=== PATIENT | male | born 1980 | race Caucasian/White ===

== ENCOUNTER 2022-04-09 13:29 | Inpatient (IN) | payer OTHER, MEDICAID ==
[~2022-04-09] VITALS: Ht 185.4 cm; Wt 68.9 kg
[2022-04-09 13:35] VITALS: BP_SYST 143
--- NOTE | 2022-04-09 13:41 | NUR ---
Patient triaged and placed in waiting room. VSS and patient appears in no acute distress at this time. Accompanied by self , awaiting available bed, and MD notified of need for MSE.
--- NOTE | 2022-04-09 14:42 | NUR ---
Note marta in ED - 04/09/22 at 1443 by ROLANDO PT SISTER / POWER OF TEST BAKER CALLED REQUESTING UPDATES. CHARGE NURSE SPOKE WITH HER. CALL BACK NUMBER .
--- NOTE | 2022-04-09 14:43 | NUR ---
PT SISTER ABRAHAM / POWER OF GANG TAILER CALLED REQUESTING UPDATES. CHARGE NURSE SPOKE WITH HER. CALL BACK NUMBER .
--- NOTE | 2022-04-09 14:45 | NUR ---
ER DR. JOVEL EXAMINING PT
[2022-04-09 15:15] LABS: HEMOGLOBIN 8.8 g/dL (14.0-18.0)
[2022-04-09 15:24] LABS: HEMATOCRIT 27.2 % (36-54); MEAN CORPUSCULAR HEMOGLOBIN 25 pg (27-31); MEAN CORPUSCULAR HGB CONC 32 % (32-36); MEAN CORPUSCULAR VOLUME 78 fL (79.0-98.0); PLATELET COUNT (AUTO) 599 K/uL (130-430); RED BLOOD CELL COUNT(AUTO) 3.48 MIL/uL (4.2-6.2); RED CELL DISTRIBUTION WIDTH 16.2 % (9.0-15.0)
[2022-04-09 15:38] LABS: ANION GAP 3 (5-15); CALCIUM 11.4 mg/dL (8.4-11.0); CHLORIDE 97 mmol/L (98-107); CREATININE 0.71 mg/dL (0.55-1.30); GLUCOSE 84 mg/dL (70-99); UREA NITROGEN, BLOOD 10 mg/dL (8-21)
[2022-04-09 15:40] LABS: BAND % (MANUAL) 4 % (0-6); BASOPHILS % (MANUAL) 0 % (0-2); BLASTS, MANUAL % 1 % (0-0); EOSINOPHILS % (MANUAL) 0 % (0-7); LYMPHOCYTES % (MANUAL) 14 % (20-46); METAMYELOCYTES % 4 % (0-0); MONOCYTES % (MANUAL) 4 % (0-11); MYELOCYTES % 2 % (0-0)
[2022-04-09 15:43] LABS: GFR AFRICAN AMERICAN 157 mL/min (>90)
[2022-04-09 15:46] LABS: ALANINE AMINOTRANSFERASE 11 U/L (12-78); ALBUMIN 2.2 g/dL (3.4-4.8); ASPARTATE AMINOTRANSFERASE 20 U/L (10-37); TOTAL BILIRUBIN 0.2 mg/dL (0.0-1.0)
[2022-04-09] MEDS ORDERED: PIPERACILLIN/TAZO 3.375 GM in D5W 50 ML IV ONE (16:15)
--- NOTE | 2022-04-09 16:30 | NUR ---
Patient to ER bed H2 to gown for evaluation. Side rails up.
--- NOTE | 2022-04-09 16:40 | NUR ---
PT VELIA FROM [facility] FOR EVAL OF WOUNDS TO SACRAL AREA THAT HAVE NOT BEEN HEALING. PT HAS THREE WOUNDS COVERED WITH DRESSINGS. PT STATES HE HAS BEEN PARAPLEGIC SINCE SEPTEMBER OF THIS YEAR WHILE HAVING TUMOR SPREAD TO SPINE. PT HAS HX OF NON-HODKINS LYMPHOMA AND HIV. PT STATES HE IS NOT CURRENTLY ON CHEMO OR RADIATION. PT IS PLANNING ON HAVING HIS SISTER DRIVE DOWN TO B OPERATOR HIM TO LIVE NEAR HER IN [facility]. PT IS AAOX4, VSS ON ARRIVAL
[2022-04-09] MEDS ORDERED: PIPERACILLIN/TAZOBACTAM 3.375 GM/VIAL (ZOSYN) IV ONE ×2 (17:26)
[2022-04-09] MEDS ORDERED: VANCOMYCIN HCL 1,000 MG in NS 250 ML IV ONE (17:45)
[2022-04-09] MEDS ORDERED: ACET325T PO (18:07)
[2022-04-09] MEDS ORDERED: CALC667T6 PO (18:07)
[2022-04-09] MEDS ORDERED: BICT1TAB PO (18:07)
[2022-04-09] MEDS ORDERED: NUT.237L67 PO (18:07)
[2022-04-09] MEDS ORDERED: ALBMDI INH (18:07)
[2022-04-09] MEDS ORDERED: ESCI20TA PO (18:07)
[2022-04-09] MEDS ORDERED: FOLI0.8T42 PO (18:07)
[2022-04-09] MEDS ORDERED: OSCD500 PO (18:07)
[2022-04-09] MEDS ORDERED: HYDR-3917 PO (18:07)
[2022-04-09] MEDS ORDERED: LIDOINT TP (18:07)
[2022-04-09] MEDS ORDERED: ATRMDI INH (18:07)
[2022-04-09] MEDS ORDERED: DIF100 PO (18:07)
[2022-04-09] MEDS ORDERED: DULO60CA42 PO (18:07)
[2022-04-09] MEDS ORDERED: ARGI1POW13 PO (18:07)
[2022-04-09] MEDS ORDERED: CEPH250C PO (18:07)
[2022-04-09] MEDS ORDERED: ASCO500T20 PO (18:07)
[2022-04-09] MEDS ORDERED: ACYC400T19 PO (18:07)
[2022-04-09] MEDS ORDERED: LOPE2CAP PO (18:07)
[2022-04-09] MEDS ORDERED: MELA5TAB12 PO (18:07)
[2022-04-09] MEDS ORDERED: PRO40 PO (18:07)
--- NOTE | 2022-04-09 18:08 | NUR ---
Medication reconciliation completed with information provided by [facility]. Any prior medication reconciliation on file was reviewed and corrected.
[2022-04-09] MEDS ORDERED: VANCOMYCIN HCL 1000 MG/VIAL IV ONE (18:13)
[2022-04-09] MEDS ORDERED: NACL 0.9% 2,000 ML IV ONE (18:30)
[2022-04-09 19:27] LABS: BILIRUBIN,URINE NEGATIVE (NEGATIVE); BLOOD, URINE NEGATIVE (NEGATIVE); CLARITY/URINE SL CLOUDY (CLEAR); COLOR,URINE YELLOW (YELLOW); GLUCOSE,URINE NEGATIVE (NEGATIVE); KETONES,URINE NEGATIVE (NEGATIVE); LEUKOCYTE ESTERASE ,URINE 3+ (NEGATIVE); NITRITE, URINE NEGATIVE (NEGATIVE); PH,URINE 8.5 (5.0-8.0); PROTEIN URINE TRACE (NEGATIVE); UROBILINOGEN,URINE 0.2 (0.2-1.0)
[2022-04-09 19:41] LABS: BACTERIA,URINE MODERATE /HPF (None Seen); RBC,URINE NONE SEEN /HPF (0-3)
[2022-04-09 19:42] LABS: MUCUS,URINE 1+ /LPF (None Seen)
[2022-04-09] MEDS ORDERED: MORPHINE 4 MG INJ. 4 MG/ML VIAL IVP PRN (19:45)
--- NOTE | 2022-04-09 19:50 | NUR ---
Admit bed requested Patient will be admitted to care of Admitted to MS unit. Diagnosis Osteomyelitis Inpatient (Yes or No) yes Observation (Yes or No) no Orientation concerns or request close to nursing station (Yes or No) no Covid Status pending On vent or bipap no Isolation requirements no Needs a sitter no From Home (Yes or if No enter name of facility) No, [facility] Requires Dialysis (Yes or No) no Med Rec Completed (Yes of No) yes
[2022-04-09] MEDS ORDERED: ACETAMINOPHEN 325 MG TABLET PO PRN (20:15)
--- NOTE | 2022-04-09 20:30 | NUR ---
Patient's sister Ella called to asked about patient. Informed her that patient is admitted and waiting for bed placement. States to call her if patient has a bed
--- NOTE | 2022-04-09 22:24 | NUR ---
Report given to Miladys DELGADO
--- NOTE | 2022-04-09 22:30 | NUR ---
pt came from the ER. Pt is awake, alert and oriented. he is bed bound, room air and has wound stage 4 in their sacrum. Pt has a tyson and DNR.
[2022-04-09 23:10] VITALS: BP_SYST 107
--- NOTE | 2022-04-10 02:00 | NUR ---
Got ordered form Dr. Fraire for 0.45 normal saline running at 80 ml/hr since patient UA is cloudy and his bp in the borderline
--- NOTE | 2022-04-10 04:06 | NUR ---
Consultation Paged Reason for Consultation: Osteomyelitis Was consult called: Y Person who was notified: Meghan Consulting Physician: Dr. Araujo Ordering Physician: Shala Szymanski
[2022-04-10] MEDS: 0.45% NS 500 ML IV SCH ×4 (05:12→20:45)
--- NOTE | 2022-04-10 06:02 | NUR ---
Consultation Paged Reason for Consultation: Osteomyelitis Was consult called: Y Person who was notified: Keon Consulting Physician: Dr. Bal Ordering Physician: Shala Szymanski
[2022-04-10 08:00] VITALS: BP_SYST 128
--- NOTE | 2022-04-10 08:00 | NUR ---
RECEIVED PATIENT FROM PM NURSE, ALERT AND ORIENTED ABLE TO VERBALIZE NEEDS, NO C/O PAIN OR DISCOMFORT AT THIS TIME, IV IN R ARM INTACT, TAO CATH DRAINING DARK CLOUDY URINE, NO OTHER CONCERNS AT THIS TIME, WILL ASSUME ALL CARE OF PATIENT
--- NOTE | 2022-04-10 10:00 | NUR ---
UPDATE PROVIDED TO SISTER REDDY REGARDING PATIENTS CONDITIO
[2022-04-10 11:22] VITALS: BP_SYST 118
[2022-04-10] MEDS: CEFEPIME 2 GM in D5W 100 ML IV SCH ×2 (11:56→22:49)
[2022-04-10] MEDS: metroNIDAZOLE 500 mg/NS 100 ML IV SCH ×2 (13:18→22:52)
[2022-04-10] MEDS ORDERED: ACETAMINOPHEN 325 MG TABLET PO PRN (14:45)
[2022-04-10] MEDS ORDERED: ALBUTEROL MDI INHALATION 8 GM INH INH PRN (14:45)
[2022-04-10] MEDS ORDERED: NALOXONE HCL 0.4 MG/ML AMP (NARCAN) IVP PRN (14:45)
[2022-04-10] MEDS ORDERED: ESCITALOPRAM OXALATE 10 MG TABLET PO SCH (14:45)
[2022-04-10] MEDS ORDERED: LOPERAMIDE HCL 2 MG CAPSULE PO PRN (14:45)
[2022-04-10] MEDS ORDERED: IPRATROPIUM BROMIDE 17 mCg/ACTUATION, 12.9 GM AER.W.ADAP INH PRN (14:45)
[2022-04-10] MEDS ORDERED: NUT TX IMPAIRED RENAL FXN SOY PO SCH (14:45)
[2022-04-10 15:24] VITALS: BP_SYST 124
[2022-04-10] MEDS ORDERED: CITALOPRAM HYDROBROMIDE 20 MG TABLET PO ONE (15:30)
[2022-04-10] MEDS ORDERED: DULoxetine HCL 30 MG CAPSULE.DR (CYMBALTA) PO ONE (15:30)
[2022-04-10] MEDS: HYDROcodone/ACETAMIN 5-325 MG TAB (NORCO/ VICODIN) PO PRN (15:58)
--- NOTE | 2022-04-10 17:00 | NUR ---
PATIENT HAS ORDER FOR ROUTINE BIKTARVY, MEDICATION NOT AVAILABLE FROM IN HOUSE PHARMACY, SPOKE TO RN AT [facility] AND PATIENT DOES NOT HAVE ANY AT FACILITY EITHER, Tomasa OSWALD MADE AWARE, REHEATER MADE AWARE AND WILL FOLLOW UP WITH CASE MANAGEMENT TO FIND AN ALTERNATIVE TO OBTAIN MEDICATION FOR PATIENT
[2022-04-10] MEDS: CALCIUM ACETATE 667 MG CAP PO SCH (17:47)
[2022-04-10] MEDS: IPRATROPIUM BROM 0.5 MG/2.5 ML VIAL.NEB (ATROVENT) INH SCH (20:03)
[2022-04-10] MEDS ORDERED: LIDOCAINE TOPICAL OINT 5%, 35 GM TP SCH (21:00)
[2022-04-10] MEDS ORDERED: NON-FORMULARY MEDICATION (Melatonin 1 TAB) PO SCH (21:00)
[2022-04-10] MEDS ORDERED: NON-FORMULARY MEDICATION (Arginine/Ascorbate Sod/Vite AC (Arginaid Powder) 1 EACH) PO SCH (21:00)
[2022-04-10] MEDS ORDERED: CALCIUM ACETATE PO SCH (22:00)
[2022-04-10 22:09] VITALS: BP_SYST 96
[2022-04-10] MEDS: ASCORBIC ACID 500 MG TABLET PO SCH (22:49)
[2022-04-10] MEDS: FLUCONAZOLE 100 MG TABLET (DIFLUCAN) PO SCH (22:50)
[2022-04-10] MEDS: ACYCLOVIR 400 MG TABLET PO SCH (22:50)
[2022-04-10] MEDS: ACETAMINOPHEN 325 MG TABLET PO PRN (22:52)
[2022-04-10] MEDS: CALCIUM CARBONATE/VITAMIN D3 1 TAB TABLET PO SCH (22:56)
[2022-04-10] MEDS: MELATONIN 5 MG TABLET PO SCH (22:56)
[2022-04-11] VITALS (10 sets, daily range): BP systolic 87–108
[2022-04-11] MEDS: 0.45% NS 500 ML IV SCH ×4 (03:00→23:25)
[2022-04-11] MEDS: metroNIDAZOLE 500 mg/NS 100 ML IV SCH ×3 (05:37→23:21)
[2022-04-11] MEDS: IPRATROPIUM BROM 0.5 MG/2.5 ML VIAL.NEB (ATROVENT) INH SCH ×4 (07:18→19:00)
[2022-04-11] MEDS: CALCIUM ACETATE 667 MG CAP PO SCH ×3 (08:00→18:00)
--- NOTE | 2022-04-11 08:00 | NUR ---
Initial Notes Patient is AOx4. Nonambulatory. Patient shows no ss of distress. Denies pain. Denies SOB. Breathing is even and nonlabored, on room air. Vital signs obtained, as documented. IVF running. IV patent. Patient remains NPO. Meds okay with small sips of water. F/C draining by gravity. Bed is locked, alarm on, and at lowest position. Call light within reach.
[2022-04-11 08:32] LABS: INR 1.1 (0.80-1.20); PROTHROMBIN TIME 11.6 SECS (9.5-12.5)
[2022-04-11] MEDS: CALCIUM CARBONATE/VITAMIN D3 1 TAB TABLET PO SCH ×2 (10:31→23:19)
[2022-04-11] MEDS: CITALOPRAM HYDROBROMIDE 20 MG TABLET PO SCH (10:32)
[2022-04-11] MEDS: NEPHROVITE, (FOLIC ACID/VITAMIN B COMP W-C 1 TAB) PO SCH (10:32)
[2022-04-11] MEDS: PANTOPRAZOLE SODIUM 40 MG TAB PO SCH (10:32)
[2022-04-11] MEDS: DULoxetine HCL 30 MG CAPSULE.DR (CYMBALTA) PO SCH (10:32)
[2022-04-11] MEDS: ACYCLOVIR 400 MG TABLET PO SCH ×2 (10:33→23:18)
[2022-04-11] MEDS: ASCORBIC ACID 500 MG TABLET PO SCH ×2 (10:33→23:19)
--- NOTE | 2022-04-11 12:00 | NUR ---
Notes Wound care done. Patient tolerated well. No ss of distress noted. Patient denies pain. Safety precautions in place and call light within reach.
[2022-04-11] MEDS: CEFEPIME 2 GM in D5W 100 ML IV SCH ×2 (12:06→23:20)
--- NOTE | 2022-04-11 12:06 | NUR ---
Scheduled IV abx given per order. Patient stable at this time.
--- NOTE | 2022-04-11 14:27 | NUR ---
Scheduled IV abx given per order. Patient stable at this time.
--- NOTE | 2022-04-11 16:00 | NUR ---
Notes Spoke Jayy RN Tunnel Heading Supervisor at [facility] phone # , regarding patient's medication Biktarvy. Jayy stated that the facility has a policy that does not allow them to release the patient's medication. States that he is not able to release meds and that our pharmacy should supply medication. Informed him that our pharmacy does not carry this particular medication and that the patient needs Biktarvy medication and not receiving medication is delaying care. RN underwriting clerks supervisor adamant that he cannot release medication. Called snf pharmacy at , spoke to elana Sheldon. Per pharmacist, no policy exist. Pharmacist agrees that patient requires medications and that it can be released. Per pharmacist, she was to call facility [facility] and inform staff to release medications for patient. Called Ella, sister and POA of patient. Ella states that she is about 7- 8 hours away and will not be here until tomorrow (04/13/22) afternoon, approximately around 3 pm. States patient has a friend Asha, who she gives consent to go get medication from facility this evening. Dangdouglas will be able to get med after 1700.
--- NOTE | 2022-04-11 17:30 | NUR ---
Notes Called [facility], spoke to Jayy RN Contemporary [employer]cer. RN did not receive a call from pharmacist. Informed RN what Pharmacist stated that there is no policy in place regarding not releasing medication. Informed from RN that Asha was already in facility to pecan picker medication. DANNY Hope to call LORRAINE Jaramillo to obtain consent to release medication to [facility]. Called and spoke to Asha at . Asha stated he was at [facility] to pecan picker medication Biktarvy and would bring medication to [facility]. Called and spoke to Ella, stated she spoke to RN at [facility], gave consent for Asha to recieve and bring medication to [facility].
--- NOTE | 2022-04-11 18:00 | NUR ---
Notes Patient off unit, went to OR.
[2022-04-11] MEDS ORDERED: METOCLOPRAMIDE HCL 10 MG/2 ML VIAL IVP PRN (18:45)
[2022-04-11] MEDS ORDERED: ONDANSETRON HCL 4 MG/2 ML VIAL IVP PRN (18:45)
[2022-04-11] MEDS ORDERED: fentaNYL CITRATE/PF 100 MCG/2 ML AMP IVP PRN ×2 (18:45)
[2022-04-11] MEDS ORDERED: NS IRRIG SOLN 1000 ML IR ONE (18:55)
[2022-04-11] MEDS ORDERED: MIDAZOLAM HCL 5 MG/5 ML VIAL IVP ONE (18:55)
[2022-04-11] MEDS ORDERED: PROPOFOL 200MG/ 20ML VIAL (DIPRIVAN) IV ONE (18:55)
[2022-04-11] MEDS ORDERED: NS 1000 ML IV.SOLN IV ONE (18:55)
--- NOTE | 2022-04-11 19:00 | NUR ---
Updated received from TIGIST Jenkins. Patient is still in OR.
--- NOTE | 2022-04-11 20:22 | NUR ---
Closing notes Patient remains in OR. Asha, patient's friend, brought Bikarvy medication. Friend Asha waiting in waiting room, can call cell phone # [phone]. Sister Ella would like a call once patient is back in room at phone # [phone]. Per LORRAINE Jaramillo, requests NO update, regarding patient's status, to be given to anyone at [facility]. Would also like to talk to manager of case regarding moving patient once discharged to a facility closer to her. Report given to DANNY Wilder.
--- NOTE | 2022-04-11 20:50 | NUR ---
Received patient from OR, s/p D&I on the posterior ulcers with wound vac. Patient's alert and oriented x4, no s/s of distress. Wound vac functioning well with small amount draining of serous sanguinous. Wound vac dressing on the sacrum and buttocks clean with no leakage or drainage noted. Report received from the OR nurse. Patient denies any pain or discomfort.
[2022-04-11] MEDS: FLUCONAZOLE 100 MG TABLET (DIFLUCAN) PO SCH (23:18)
[2022-04-11] MEDS: MELATONIN 5 MG TABLET PO SCH (23:19)
[2022-04-12] VITALS (7 sets, daily range): BP systolic 88–113
[2022-04-12] MEDS: 0.45% NS 500 ML IV SCH (04:00)
[2022-04-12] MEDS: metroNIDAZOLE 500 mg/NS 100 ML IV SCH ×3 (06:35→23:00)
[2022-04-12] MEDS: IPRATROPIUM BROM 0.5 MG/2.5 ML VIAL.NEB (ATROVENT) INH SCH ×4 (07:18→19:00)
--- NOTE | 2022-04-12 08:00 | NUR ---
OPENING NOTE Patient resting in bed with eyes closed, no sign of distress or pain. Granica catheter in place draining to gravity. Wound vac is patent and draining brown discharge. IV is patent and running prescribed fluids. Patients breathing is nonlabored and even. All needs met at this time and safety checks made.
[2022-04-12 08:04] LABS: BASOPHILS # (AUTO) 0.2 K/uL (0.0-0.2); BASOPHILS % (AUTO) 0.2 % (0.0-2.0); EOSINOPHILS # (AUTO) 0.2 K/uL (0.0-0.4); EOSINOPHILS % (AUTO) 0.3 % (0.0-4.0); LYMPHOCYTES # (AUTO) 7.6 K/uL (1.0-5.5); LYMPHOCYTES % (AUTO) 11.6 % (20.5-51.5); MEAN CORPUSCULAR HEMOGLOBIN 25 pg (27-31); MEAN CORPUSCULAR HGB CONC 32 % (32-36); MEAN CORPUSCULAR VOLUME 77 fL (79.0-98.0); MONOCYTES # (AUTO) 4.8 K/uL (0.0-1.0); MONOCYTES % (AUTO) 7.4 % (1.7-9.3); NEUTROPHILS # (AUTO) 52.4 K/uL (1.8-7.7); NEUTROPHILS % (AUTO) 80.5 % (40.0-70.0); PLATELET COUNT (AUTO) 487 K/uL (130-430); RED BLOOD CELL COUNT(AUTO) 3.24 MIL/uL (4.2-6.2); RED CELL DISTRIBUTION WIDTH 15.8 % (9.0-15.0)
[2022-04-12 08:25] LABS: WHITE BLOOD COUNT (AUTO) 65.2 K/uL (4.8-10.8)
[2022-04-12 08:53] LABS: ALBUMIN 1.9 g/dL (3.4-4.8); CREATININE 0.82 mg/dL (0.55-1.30); TOTAL BILIRUBIN 0.3 mg/dL (0.0-1.0)
[2022-04-12] MEDS: CALCIUM CARBONATE/VITAMIN D3 1 TAB TABLET PO SCH ×2 (09:09→22:59)
[2022-04-12] MEDS: ACYCLOVIR 400 MG TABLET PO SCH ×2 (09:09→22:59)
[2022-04-12] MEDS: DULoxetine HCL 30 MG CAPSULE.DR (CYMBALTA) PO SCH (09:09)
[2022-04-12] MEDS: ASCORBIC ACID 500 MG TABLET PO SCH ×2 (09:10→22:58)
[2022-04-12] MEDS: CALCIUM ACETATE 667 MG CAP PO SCH ×3 (09:10→17:13)
[2022-04-12] MEDS: NEPHROVITE, (FOLIC ACID/VITAMIN B COMP W-C 1 TAB) PO SCH (09:10)
[2022-04-12] MEDS: PANTOPRAZOLE SODIUM 40 MG TAB PO SCH (09:11)
[2022-04-12] MEDS: CITALOPRAM HYDROBROMIDE 20 MG TABLET PO SCH (09:11)
[2022-04-12 09:20] LABS: CALCIUM 12.5 mg/dL (8.4-11.0)
--- NOTE | 2022-04-12 09:41 | NUR ---
JESUS TRUONG CALLED, DR JONES, RE; CRITICAL WBC LEVEL. SPOKE TO DEVONTE.
--- NOTE | 2022-04-12 09:58 | NUR ---
CRITICAL LAB: RUSS from Laboratory called with critical lab value WBC 65.2. Medical record number and patient name verified. Read back of values done. DR HASKINS notified of value. NEW orders given at this time.
--- NOTE | 2022-04-12 11:28 | NUR ---
CRITICAL LAB: Dunia from Laboratory called with critical lab value calcium 12.5. Medical record number and patient name verified. Read back of values done. Dr Rausch notified of value. New orders given at this time.
[2022-04-12] MEDS: METHYLPREDNISOLONE SOD SUCC 40 MG/ML VIAL IVP ONE ×2 (11:52→12:15)
[2022-04-12] MEDS: FLUCONAZOLE 200 mg/ NS 100 ML IV SCH (11:54)
[2022-04-12] MEDS: NACL 0.9% 1,000 ML IV SCH ×2 (12:09→23:07)
[2022-04-12] MEDS ORDERED: METHYLPREDNISOLONE SOD SUCC 40 MG/ML VIAL IVP ONE (12:15)
--- NOTE | 2022-04-12 14:30 | NUR ---
FAMILY SPEAKING WITH MD ON PHONE Sister Ella spoke with Dr Rausch on the phone and updated on the plan of care. Family is requesting to take the patient home to [facility] for treatment at a SNF. Family is aware that patient is not able to be discharged for transfer at this time, verbalized understanding.
[2022-04-12] MEDS: PIPERACILLIN/TAZO 4.5GM/DEX-IS 100 ML IV SCH ×2 (14:41→22:59)
--- NOTE | 2022-04-12 15:18 | NUR ---
ROUNDS Patient's blood sugar running low, rechecked at bedside (73), patient given juice and provided education. All needs met at this time and safety checks made.
--- NOTE | 2022-04-12 18:58 | NUR ---
CLOSING NOTES: Patient is resting in bed. No ss of distress.Patient denies pain. Breathing is even and unlabored. All needs met and safety checks made. Call light is within reach and bed in lowest position.
[2022-04-12] MEDS: MELATONIN 5 MG TABLET PO SCH (22:58)
[2022-04-13 00:51] VITALS: BP_SYST 117
[2022-04-13] MEDS: NACL 0.9% 1,000 ML IV SCH ×2 (03:30→16:06)
[2022-04-13] MEDS: metroNIDAZOLE 500 mg/NS 100 ML IV SCH ×3 (06:59→23:07)
[2022-04-13] MEDS: PIPERACILLIN/TAZO 4.5GM/DEX-IS 100 ML IV SCH ×2 (07:00→16:09)
[2022-04-13] MEDS: IPRATROPIUM BROM 0.5 MG/2.5 ML VIAL.NEB (ATROVENT) INH SCH ×4 (07:53→19:40)
[2022-04-13] MEDS ORDERED: METHYLPREDNISOLONE SOD SUCC 40 MG/ML VIAL IVP SCH (09:00)
[2022-04-13 09:27] LABS: HEMATOCRIT 26.6 % (36-54); HEMOGLOBIN 8.4 g/dL (14.0-18.0); MEAN CORPUSCULAR HEMOGLOBIN 25 pg (27-31); MEAN CORPUSCULAR HGB CONC 32 % (32-36); MEAN CORPUSCULAR VOLUME 77 fL (79.0-98.0); PLATELET COUNT (AUTO) 382 K/uL (130-430); RED BLOOD CELL COUNT(AUTO) 3.45 MIL/uL (4.2-6.2); RED CELL DISTRIBUTION WIDTH 16.5 % (9.0-15.0)
[2022-04-13 09:43] LABS: CREATININE 0.77 mg/dL (0.55-1.30)
[2022-04-13 09:59] LABS: ALBUMIN 1.9 g/dL (3.4-4.8); TOTAL BILIRUBIN 0.4 mg/dL (0.0-1.0)
[2022-04-13 10:04] LABS: CALCIUM 13.6 mg/dL (8.4-11.0)
[2022-04-13] MEDS: CITALOPRAM HYDROBROMIDE 20 MG TABLET PO SCH (10:42)
[2022-04-13] MEDS: NEPHROVITE, (FOLIC ACID/VITAMIN B COMP W-C 1 TAB) PO SCH (10:42)
[2022-04-13] MEDS: PANTOPRAZOLE SODIUM 40 MG TAB PO SCH (10:42)
[2022-04-13] MEDS: DULoxetine HCL 30 MG CAPSULE.DR (CYMBALTA) PO SCH (10:43)
[2022-04-13] MEDS: ACYCLOVIR 400 MG TABLET PO SCH ×2 (10:43→21:39)
[2022-04-13 11:21] VITALS: BP_SYST 104
[2022-04-13] MEDS ORDERED: CLARITHROMYCIN 500 MG TABLET PO ONE (13:30)
[2022-04-13 13:37] LABS: ATYPICAL LYMPHOCYTES % 0 % (0-0); BAND % (MANUAL) 18 % (0-6); BASOPHILS % (MANUAL) 0 % (0-2); EOSINOPHILS % (MANUAL) 0 % (0-7); LYMPHOCYTES % (MANUAL) 3 % (20-46); MONOCYTES % (MANUAL) 5 % (0-11)
[2022-04-13 13:38] LABS: BLASTS, MANUAL % 7 % (0-0); METAMYELOCYTES % 15 % (0-0); MYELOCYTES % 10 % (0-0); PROMYELOCYTES % 10 % (0-0)
[2022-04-13] MEDS ORDERED: PAMIDRONATE DISODIUM 30 MG in NS 500 ML IV ONE (14:15)
[2022-04-13 15:24] VITALS: BP_SYST 114
[2022-04-13 16:02] VITALS: BP_SYST 140
[2022-04-13] MEDS: FLUCONAZOLE 200 mg/ NS 100 ML IV SCH (16:06)
--- NOTE | 2022-04-13 18:58 | NUR ---
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 Patient had stool that was taken to the laboratory for C-diff analysis but stool was formed so laboratory couldn't complete the test. Sister and Brother in law were visiting throughout the day. Restarted IV twice for meds to be given. Spoke to various individuals about getting patient ready for discharge tomorrow. Patient generally weak, but is responsive. Dietary consult completed as patient's appetite is very poor. Otherwise no sign or symptom of acute distress at this time.
[2022-04-13] MEDS ORDERED: ASPIRIN 81 MG TAB.CHEW ONE (19:46)
[2022-04-13 20:00] VITALS: BP_SYST 106
[2022-04-13] MEDS: MELATONIN 5 MG TABLET PO SCH (21:39)
[2022-04-13] MEDS: HYDROcodone/ACETAMIN 5-325 MG TAB (NORCO/ VICODIN) PO PRN (21:40)
[2022-04-14] MEDS: PIPERACILLIN/TAZO 4.5GM/DEX-IS 100 ML IV SCH ×3 (00:08→15:58)
[2022-04-14 00:12] VITALS: BP_SYST 108
[2022-04-14] MEDS: NACL 0.9% 1,000 ML IV SCH ×3 (01:16→11:30)
[2022-04-14] MEDS: metroNIDAZOLE 500 mg/NS 100 ML IV SCH ×3 (05:43→22:22)
[2022-04-14] MEDS: IPRATROPIUM BROM 0.5 MG/2.5 ML VIAL.NEB (ATROVENT) INH SCH ×4 (07:05→19:35)
[2022-04-14 07:42] LABS: BASOPHILS # (AUTO) 0.3 K/uL (0.0-0.2); BASOPHILS % (AUTO) 0.2 % (0.0-2.0); EOSINOPHILS # (AUTO) 0.8 K/uL (0.0-0.4); EOSINOPHILS % (AUTO) 0.8 % (0.0-4.0); HEMATOCRIT 24.1 % (36-54); HEMOGLOBIN 7.8 g/dL (14.0-18.0); LYMPHOCYTES # (AUTO) 8.7 K/uL (1.0-5.5); LYMPHOCYTES % (AUTO) 8.4 % (20.5-51.5); MEAN CORPUSCULAR HEMOGLOBIN 25 pg (27-31); MEAN CORPUSCULAR HGB CONC 32 % (32-36); MEAN CORPUSCULAR VOLUME 76 fL (79.0-98.0); MONOCYTES # (AUTO) 21.9 K/uL (0.0-1.0); MONOCYTES % (AUTO) 21.1 % (1.7-9.3); NEUTROPHILS # (AUTO) 72.1 K/uL (1.8-7.7); PLATELET COUNT (AUTO) 289 K/uL (130-430); RED BLOOD CELL COUNT(AUTO) 3.17 MIL/uL (4.2-6.2); RED CELL DISTRIBUTION WIDTH 16.4 % (9.0-15.0)
[2022-04-14 07:58] LABS: CREATININE 0.75 mg/dL (0.55-1.30)
[2022-04-14] MEDS ORDERED: ASPIRIN 81 MG TAB.CHEW ONE (08:27)
[2022-04-14 08:50] LABS: CALCIUM 12.8 mg/dL (8.4-11.0)
[2022-04-14] MEDS: PANTOPRAZOLE SODIUM 40 MG TAB PO SCH (09:16)
[2022-04-14] MEDS: DULoxetine HCL 30 MG CAPSULE.DR (CYMBALTA) PO SCH (09:17)
[2022-04-14] MEDS: ACYCLOVIR 400 MG TABLET PO SCH ×2 (09:18→21:20)
[2022-04-14] MEDS: CITALOPRAM HYDROBROMIDE 20 MG TABLET PO SCH (09:19)
[2022-04-14] MEDS: CLARITHROMYCIN 500 MG TABLET PO SCH (09:21)
[2022-04-14] MEDS: NEPHROVITE, (FOLIC ACID/VITAMIN B COMP W-C 1 TAB) PO SCH (09:22)
[2022-04-14 11:21] VITALS: BP_SYST 107
[2022-04-14 11:26] LABS: PTH, INTACT 2 pg/mL (15-65)
--- NOTE | 2022-04-14 11:45 | NUR ---
Nutrition F/U Admitting Diagnosis Osteomyelitis Reviewed Pertinent Medical/Surgical Hx Medical Record Family members Medical History Comment: Per EMR reivew, PMH of non-Hodgkin lymphoma s/p chemotherapy, paraplegia, anemia, BPH, chronic tyson cathether, CKD, HIV, Burkitt lymphoma. Pt admitted for infected sacral wound, fever. Dx of pelvic bone osteomyelitis, UTI. Per MD notes, plans for irrigation and excisional debridement. 04/10:Consultation: Ischemic gluteal pressure ulcers, necrotic skin, chills ,and unstageable sacral pressure ulcer. Recommend irrigation and excisional debridement of gluteal pressure ulcers and sacral pressure ulcer.He may benefit from negative pressure wound therapy. After debridement, we will try to place the wound-VAC. Subjective Information Nutrition Consult received 04/13/22@ 1404 for pt not eating, HIV+ wasting RD rounded to pt room and pt was sleeping. RD s/w family members about pt condition. They attested to him not eating well at all; he is too weak. Sister said he barely ate yesterday. She said they asked for ONS and never received any, even though it is on his diet order. RD brought back a few Nepros for him. Per sister, pt has been experiencing nausea and chewing difficulties (mostly due to the dry chicken that is served). Sister said [place], [place]. RD suggested considering a GT to help him begin to meet his nutritional needs; and let them know, he could still eat but it would help give him more nutrition to get stronger. She said she would consider that and bring it up to the place they are transferring him to. Current Diet Order/Nutrition Support Renal standard, Nepro TID, Sherwin BID x 2 days Patient/Significant Other Able To Verbalize Education Provided Not Indicated NEW Pertinent Medications Acyclovir, IV Fluids, Piper/Tazo, Zinc, protonix, Nephrovite, NEW Pertinent Labs WBC 102* H, Na 130 L, K 2.8*L, BG 59 L, BUN/CRE WNL, Ca 12.8 H Height (Feet) 6 feet Height (Inches) 1.00 inches Weight fluctuating since admit 04/09 152 pounds/ 68.946 kg Body Mass Index 20.05 kg/m2 Usual Weight 172 lbs %UBW 88 %IBW 83 NEW [place]/Adjusted Body Weight 184#/83.6kg IBW/ ABW (para) 174#/ 79 kg Recent Weight Change Yes - Unintentional wt loss 20#/12% wt change w/in a year Weight Status Underweight Gastrointestinal Symptoms Nausea Last BM Apr 14, 2022 x 1 Food Allergies No Skin Integrity Comment: Gael Score: 12, posterior coccyx Stage IV pressure ulcer per EMR review. Current % PO Poor (avg of 37% x 6 meals since 04/10) NEW Estimated Energy Expenditure (kcals/day) 9767-9397 kcal (30-35kcal/kg ABW d/t wound healing, CA) NEW Estimated Protein Required (g/day) 47-95 g (0.6-1.2g/kg ABW d/t CKD no HD, wound healing, CA) Estimated Fluid Required (l/day) Defer to MD d/t CKD Problem/Etiology/Signs/Symptoms Increased energy needs R/T metabolic demands AEB estimated nutritional needs for wound healing. Expected Outcomes/Goals Monitor appetite and PO intakes w/ goal of meeting >75% of estimated nutritional needs, labs trending WNL, normal GI function, and skin integrity/wt maintenance. Dietitian Recommendations * Renal diet, Nepro TID, Sherwin BID (supplements yield 1440kcal/day, 62g protein/day). * Encourage good PO intakes Follow Up High Risk: F/U in 2-3days GS, MPH, RD
--- NOTE | 2022-04-14 11:47 | NUR ---
Dietitian Recommendations * Renal diet, Nepro TID, Sherwin BID (supplements yield 1440kcal/day, 62g protein/day). * Encourage good PO intakes GS, MPH, RD Please refer to RD F/U for further details
[2022-04-14 11:49] LABS: WHITE BLOOD COUNT (AUTO) 103.8 K/uL (4.8-10.8)
[2022-04-14] MEDS ORDERED: KCL 40 mEq in 100 mL (PREMIX) 100 ML IV ONE (12:30)
[2022-04-14] MEDS: FLUCONAZOLE 200 mg/ NS 100 ML IV SCH (13:13)
[2022-04-14] MEDS ORDERED: PAMIDRONATE DISODIUM 30 MG in NS 500 ML IV ONE (13:30)
[2022-04-14] MEDS: KCL 20 mEq in 100 mL (PREMIX) 100 ML IV SCH ×2 (13:50→16:03)
[2022-04-14 13:59] LABS: NEUTROPHILS % (AUTO) 69.5 % (40.0-70.0)
[2022-04-14 15:29] VITALS: BP_SYST 120
[2022-04-14] MEDS: VANCOMYCIN HCL 1,000 MG in NS 250 ML IV SCH (16:03)
--- NOTE | 2022-04-14 16:04 | NUR ---
Information for transfer to [facility] FAXed to Leyda -warehouse manager at [facility]. [phone]/fax [phone]. Accepting MD will be Dr Allen [phone]
--- NOTE | 2022-04-14 19:30 | NUR ---
OPENING NOTE Pt lying in bed, eyes closed and nonresponsive. Pt had temperature of 101 today, currently 98.3. On cooling measures. 2L nasal cannula. IV sites intact and patent. Garnica catheter intact and draining by gravity. Wound vac to sacrum draining. Fall and safety precautions in place with bed in lowest position, bed alarm on, and call light within reach
[2022-04-14 20:00] VITALS: BP_SYST 111
[2022-04-14] MEDS ORDERED: TIGECYCLINE 100 MG in NS 100 ML IV ONE (21:00)
[2022-04-14] MEDS: MELATONIN 5 MG TABLET PO SCH ×2 (21:20→22:47)
--- NOTE | 2022-04-14 21:30 | NUR ---
PATIENT HAS A TEMP OF 101.1. PATIENT REFUSING TYLENOL BY MOUTH. COOLING MEASURES APPLIED AND DR. LUCAS PAGED TO BE NOTIFIED. Kerline LUCERO RN.
[2022-04-14] MEDS: ACETAMINOPHEN 325 MG TABLET PO PRN ×2 (21:48→22:21)
--- NOTE | 2022-04-14 22:00 | NUR ---
NO RETURN CALL BACK FROM DR. LUCAS TO NOTIFY OF PATIENT TEMP AND UNABLE TO GIVE ORAL TYLENOL. DR. LUCAS PAGED A SECOND TIME. Kerline LUCERO RN.
--- NOTE | 2022-04-14 22:30 | NUR ---
PATIENT'S TEMP NOW 101.7. NEW ICE PACKS APPLIED. NO RETURN CALL FROM DR. LUCAS. JAGUAR CHARGE NURSE NOTIFIED. DR. DOAN PAGED TO BE NOTIFIED. Kerline LUCERO RN.
--- NOTE | 2022-04-14 23:22 | NUR ---
NO RETURN CALL FROM DR. DOAN. DR. DOAN PAGED A SECOND TIME TO BE NOTIFIED OF ELEVATE TEMP AND UNABLE TO GIVE PO TYLENOL. Kerline LUCERO RN.
--- NOTE | 2022-04-15 00:03 | NUR ---
PATIENT TEMP NOW 101.6. COOLING MEASURES APPLIED AGAIN. NO RETURN CALL FROM DR. DOAN. DR. DOAN PAGED FOR THE THIRD TIME AND [facility] CHARGE NURSE NOTIFIED. Kerline LUCERO RN.
[2022-04-15] MEDS: NACL 0.9% 1,000 ML IV SCH ×2 (00:29→09:39)
[2022-04-15] MEDS: VANCOMYCIN HCL 1,000 MG in NS 250 ML IV SCH ×2 (02:26→15:45)
[2022-04-15 02:35] VITALS: BP_SYST 130
--- NOTE | 2022-04-15 02:42 | NUR ---
PATIENT TEMP NOW 102.4 WITH RESPIRATIONS OF 40, BLOOD PRESSURE 130/84 AND HEART RATE OF 128. DR. DOAN CALLED TO BE NOTIFIED. MESSAGE LEFT ON CELL PHONE. NUMERICAL TOOL PROGRAMMER AND CHARGE NURSE MADE AWARE OF PATIENTS CONDITION. COOLING MEASURES APPLIED. PATIENT CONFUSED AND UNABLE TO SWALLOW PILLS AT THIS TIME. WILL CONTINUE TO MONITOR FOR SAFETY. Kerline LUCERO RN.
--- NOTE | 2022-04-15 02:58 | NUR ---
DR. KABA CALLED AND NOTIFIED OF PATIENTS CONDITION, ELEVATED TEMP OF 102.4, RESPIRATIONS OF 40, HEART RATE OF 128 AND BLOOD PRESSURE OF 130/84. ORDERS FOR TYLENOL MO GIVEN. WILL CARRY OUT ORDER AND CONTINUE TO MONITOR FOR SAFETY. Kerline LUCERO RN.
[2022-04-15] MEDS: ACETAMINOPHEN 650 MG SUPP.RECT RC PRN ×2 (03:30→09:41)
[2022-04-15 04:30] VITALS: BP_SYST 118
--- NOTE | 2022-04-15 04:30 | NUR ---
TEMP REDUCED TO 101.5 AFTER TYLENOL 650MG SUPP. COOLING MEASURES APPLIED. WILL CONTINUE TO MONITOR FOR SAFETY. Kerline LUCERO RN.
[2022-04-15] MEDS: metroNIDAZOLE 500 mg/NS 100 ML IV SCH ×3 (06:04→22:24)
--- NOTE | 2022-04-15 07:02 | NUR ---
DR. DOAN RETURNED CALL AND PLACED ORDERS FOR BLOOD CULTURE, COOLING BLANKET, URINE CULTURE, CHANGE IVF TO D5NS @75ML/HR. COVID, FLU SWAB, ACCU CHECK X [address] ORDERS AND ENDORSE TO DAY SHIFT NURSE. Kerline LUCERO RN
[2022-04-15 07:07] LABS: BASOPHILS # (AUTO) 0.3 K/uL (0.0-0.2); BASOPHILS % (AUTO) 0.3 % (0.0-2.0); EOSINOPHILS # (AUTO) 0.3 K/uL (0.0-0.4); EOSINOPHILS % (AUTO) 0.4 % (0.0-4.0); HEMATOCRIT 25.8 % (36-54); HEMOGLOBIN 8.3 g/dL (14.0-18.0); LYMPHOCYTES # (AUTO) 10.7 K/uL (1.0-5.5); LYMPHOCYTES % (AUTO) 13.5 % (20.5-51.5); MEAN CORPUSCULAR HEMOGLOBIN 24 pg (27-31); MEAN CORPUSCULAR HGB CONC 32 % (32-36); MEAN CORPUSCULAR VOLUME 76 fL (79.0-98.0); MONOCYTES % (AUTO) 27.8 % (1.7-9.3); PLATELET COUNT (AUTO) 178 K/uL (130-430); RED BLOOD CELL COUNT(AUTO) 3.42 MIL/uL (4.2-6.2); RED CELL DISTRIBUTION WIDTH 16.5 % (9.0-15.0)
[2022-04-15] MEDS ORDERED: D5NS 1,000 ML IV SCH (07:15)
[2022-04-15 07:29] LABS: ALBUMIN 1.9 g/dL (3.4-4.8); CALCIUM 11.4 mg/dL (8.4-11.0); CREATININE 0.85 mg/dL (0.55-1.30); PHOSPHORUS 0.3 mg/dL (2.7-4.5); TOTAL BILIRUBIN 0.4 mg/dL (0.0-1.0)
[2022-04-15] MEDS: IPRATROPIUM BROM 0.5 MG/2.5 ML VIAL.NEB (ATROVENT) INH SCH ×3 (07:29→19:43)
[2022-04-15] MEDS: PANTOPRAZOLE SODIUM 40 MG TAB PO SCH (09:00)
[2022-04-15] MEDS: DULoxetine HCL 30 MG CAPSULE.DR (CYMBALTA) PO SCH (09:00)
[2022-04-15] MEDS: CITALOPRAM HYDROBROMIDE 20 MG TABLET PO SCH (09:00)
[2022-04-15] MEDS: NEPHROVITE, (FOLIC ACID/VITAMIN B COMP W-C 1 TAB) PO SCH (09:00)
[2022-04-15] MEDS: CLARITHROMYCIN 500 MG TABLET PO SCH (09:00)
[2022-04-15] MEDS: ACYCLOVIR 400 MG TABLET PO SCH (09:40)
[2022-04-15] MEDS: TIGECYCLINE 50 MG in NS 100 ML IV SCH ×2 (09:43→20:44)
[2022-04-15 10:42] LABS: WHITE BLOOD COUNT (AUTO) 79.3 K/uL (4.8-10.8)
[2022-04-15 11:20] VITALS: BP_SYST 101
[2022-04-15] MEDS ORDERED: KCL 20 mEq in D5W 1000 mL 1,000 ML IV SCH ×2 (12:15→12:30)
[2022-04-15] MEDS ORDERED: K PHOS 30 MM in NS 250 ML IV ONE (12:15)
[2022-04-15 12:33] LABS: VIT D,1, 25-DIHYDROXY 13.3 pg/mL (24.8-81.5)
--- NOTE | 2022-04-15 13:23 | NUR ---
Dr Allen at [facility] refused to accept patient for transfer. He and Dr Rausch decided the patient is too unstable for 600 mile trip to [place], [place]. The patient's family is aware of refusal for transfer.
[2022-04-15] MEDS ORDERED: DEXTROSE 50% JECT 50 ML DISP.SYRIN IVP ONE (13:30)
[2022-04-15] MEDS ORDERED: ENOXAPARIN SODIUM 40 MG/0.4 ML SYRINGE SUBCUT ONE (14:15)
[2022-04-15] MEDS ORDERED: MAGNESIUM SULFATE IN WATER 100 ML IV ONE (14:30)
[2022-04-15 15:24] VITALS: BP_SYST 107
[2022-04-15] MEDS: FLUCONAZOLE 200 mg/ NS 100 ML IV SCH (15:35)
[2022-04-15] MEDS: ALBUMIN HUMAN 25% 100 ML IV SCH ×2 (15:36→16:30)
[2022-04-15] MEDS: SODIUM BICARBONATE 8.4% JECT 150 MEQ in D5W 1,000 ML IVP SCH (15:44)
--- NOTE | 2022-04-15 16:08 | NUR ---
CONSULTATION PAGED/CALLED Reason for Consultation: PNEUMONIA Person Who was Notified: RICARDO AT EXCHANGE Consulting Physician: DR. SANDERS Personal Companion Specialty: PULMONARY Ordering Physician: DR. DOAN
--- NOTE | 2022-04-15 17:09 | NUR ---
CONSULT GI COLONOSCOPY NEEDED DR FRAZIER [phone] DR KING WASTE BALER S[facility]
[2022-04-15 20:00] VITALS: BP_SYST 97
[2022-04-16] MEDS: ALBUMIN HUMAN 25% 100 ML IV SCH (00:09)
--- NOTE | 2022-04-16 00:15 | NUR ---
ROUNDS Pt remains unchanged. VSS. Temp 99. Fall and safety precautions in place
[2022-04-16 00:44] VITALS: BP_SYST 94
[2022-04-16] MEDS: VANCOMYCIN HCL 1,000 MG in NS 250 ML IV SCH ×2 (04:18→19:40)
[2022-04-16] MEDS: metroNIDAZOLE 500 mg/NS 100 ML IV SCH ×3 (06:30→21:31)
[2022-04-16] MEDS: SODIUM BICARBONATE 8.4% JECT 150 MEQ in D5W 1,000 ML IVP SCH ×2 (06:31→20:14)
--- NOTE | 2022-04-16 06:57 | NUR ---
CLOSING NOTE Pt lying in bed, eyes closed and nonresponsive. Temp currently 99F. Ice packs applied. On cooling measures. 2L nasal cannula. IV sites intact and patent. Garnica catheter intact and draining by gravity. Wound vac to sacrum draining. All needs met throughout shift. Fall and safety precautions in place with bed in lowest position, bed alarm on, and call light within reach
[2022-04-16] MEDS: IPRATROPIUM BROM 0.5 MG/2.5 ML VIAL.NEB (ATROVENT) INH SCH ×4 (07:21→19:51)
[2022-04-16 07:29] LABS: BASOPHILS # (AUTO) 0.1 K/uL (0.0-0.2); BASOPHILS % (AUTO) 0.2 % (0.0-2.0); EOSINOPHILS # (AUTO) 0.2 K/uL (0.0-0.4); EOSINOPHILS % (AUTO) 0.4 % (0.0-4.0); HEMATOCRIT 22.3 % (36-54); HEMOGLOBIN 7.4 g/dL (14.0-18.0); LYMPHOCYTES # (AUTO) 6.1 K/uL (1.0-5.5); LYMPHOCYTES % (AUTO) 9.5 % (20.5-51.5); MEAN CORPUSCULAR HEMOGLOBIN 25 pg (27-31); MEAN CORPUSCULAR HGB CONC 33 % (32-36); MEAN CORPUSCULAR VOLUME 75 fL (79.0-98.0); MONOCYTES # (AUTO) 22.2 K/uL (0.0-1.0); MONOCYTES % (AUTO) 34.3 % (1.7-9.3); NEUTROPHILS % (AUTO) 55.6 % (40.0-70.0); PLATELET COUNT (AUTO) 109 K/uL (130-430); RED BLOOD CELL COUNT(AUTO) 2.99 MIL/uL (4.2-6.2); RED CELL DISTRIBUTION WIDTH 17.2 % (9.0-15.0)
[2022-04-16 08:19] LABS: CALCIUM 10.6 mg/dL (8.4-11.0); CREATININE 0.6 mg/dL (0.55-1.30)
[2022-04-16 08:38] LABS: WHITE BLOOD COUNT (AUTO) 64.7 K/uL (4.8-10.8)
[2022-04-16] MEDS: DULoxetine HCL 30 MG CAPSULE.DR (CYMBALTA) PO SCH (09:00)
[2022-04-16] MEDS: NEPHROVITE, (FOLIC ACID/VITAMIN B COMP W-C 1 TAB) PO SCH (09:00)
[2022-04-16] MEDS: CITALOPRAM HYDROBROMIDE 20 MG TABLET PO SCH (09:00)
[2022-04-16] MEDS: PANTOPRAZOLE SODIUM 40 MG TAB PO SCH (09:00)
[2022-04-16] MEDS ORDERED: DEXTROSE 50% JECT 50 ML DISP.SYRIN IVP ONE (09:15)
[2022-04-16] MEDS: ENOXAPARIN SODIUM 40 MG/0.4 ML SYRINGE SUBCUT SCH (09:25)
[2022-04-16] MEDS: TIGECYCLINE 50 MG in NS 100 ML IV SCH ×2 (09:26→20:11)
[2022-04-16] MEDS ORDERED: POTASSIUM CHLORIDE 40 MEQ in D5W 250 ML IV ONE (11:00)
[2022-04-16 11:37] VITALS: BP_SYST 97
--- NOTE | 2022-04-16 13:30 | NUR ---
[employer] EMPLOYER RELATIONS REPRESENTATIVE wanted to met with family to check in since they were told pt. is not stable to transport to [facility]. EMPLOYER RELATIONS REPRESENTATIVE met with pts. ' daughter, Ella Kaplan and pts. dad, Toni who are from [facility] near [facility]. EMPLOYER RELATIONS REPRESENTATIVE family stepped outside of the room to discuss hospice as an option. Toni stated the attending does not feel pt. is stable and that pt. is going to pass away at the hospital. Toni also stated they are waiting to speak to Dr. Wilhelm. When EMPLOYER RELATIONS REPRESENTATIVE asked if they had been asked about hospice services, Toni stated hospice is a service for home. EMPLOYER RELATIONS REPRESENTATIVE educated family on the option of hospice and where those services can take place. Toni wanted to speak to Dr. Avendaño to gather more info and daughter stated they had already asked the Rn if they could speak to Dr. Avendaño. EMPLOYER RELATIONS REPRESENTATIVE let them know how they can reach her should they want to explore hospice or need anything else. EMPLOYER RELATIONS REPRESENTATIVE will remain available as needed.
[2022-04-16 16:28] VITALS: BP_SYST 117
--- NOTE | 2022-04-16 17:27 | NUR ---
WOUND EVALUATION: Wound Consult received from Dr. Bal. Thank you, Dr. Bal, for the consult. Patient received in a Elkins Bed with an Isoflex ROMERO mattress, awake, alert, and oriented. Patient is unable to turn in bed. Gael Score is an 11. Past Medical History: Non-Hodgkin Lymphoma, s/p chemotherapy, Anemia, BPH, chronic Indwelling Garnica Catheter, CKD, HIV, Burkitt Lymphoma. Recent Labs: WBC 64.7, RBC 2.99, hemoglobin 7.4, hematocrit 22.3, platelets 109, potassium 2.9, glucose 49, albumin 1.9. Intrinsic factors that delay wound healing: Non-Hodgkin Lymphoma, s/p chemotherapy, Anemia, CKD, HIV, Burkitt Lymphoma, severe Hypoalbuminemia, Hypoglycemia. Extrinsic factors that delay wound healing: Immobility. Microbiology: Blood culture results x2 negative. Urine culture results positive for Proteus Mirabilis. Wound culture results positive for Acinetobacter Baumannii/Haemol (MDRO/ASPHALT TAR AND GRAVEL ROOFER). New blood culture results x2 in progress. Urine culture results negative. New blood culture results x2 in progress. Imaging: CT Abd/Pelvis showed Pelvic Osteomyelitis and Proctitis. Per Dr. Fraire's note, custodial facility records indicated that patient has possible multiple wound infections to pressure sores on his sacrum not responding to aggressive wound care. Wound Assessment: 1. Sacral area: Stage IV pressure ulcer, present on admission. Wound bed has 40% brown slough, 10% yellow slough, 20% black slough, 30% red tissue. No odor, small sanguineous drainage. Undermining present from 9-2 o'clock: 1.3 cm at 9 o'clock; 3.5 cm at 12 o'clock; 1.2 cm at 2 o'clock. Wound measures 9.5 cm x 13.9 cm x 2.0 cm. 2. Left Buttock near Ischium: Stage IV pressure ulcer, present on admission. Wound bed has 40% brown slough, 10% yellow slough, 20% black slough, 30% red tissue. No odor, scant sanguineous drainage. Undermining present from 8-2 o'clock: 3.8 cm at 8 o'clock; 3.6 cm at 9 o'clock; 3.7 cm at 12 o'clock; 1.6 cm at 2 o'clock. Wound measures 7.6 cm x 6.9 cm x 4.3 cm. 3. Right Buttock near Ischium: Stage IV pressure ulcer, present on admission. Wound bed has 50% yellow slough, 10% black slough, 40% dark pink tissue. No odor, scant sanguineous drainage. Undermining present from 9-1 o'clock: 4.0 cm at 9 o'clock; 2.4 cm at 12 o'clock; 1.4 cm at 1 o'clock. Wound measures 3.7 cm x 5.1 cm x 4.7 cm. Recommend: Cleanse wound with normal saline. Apply Sureprep to periwound. Pat black granular foam dressing to size and insert black granufoam dressings cut in a linear fashion into the wound beds cover wound bed with VAC drape. Cut small holes and slough each wound dressing with scissors and and connect wounds together. Run an additional black granufoam dressing cut in a linear fashion to a non-bony portion of the thigh and attach suction attachment. Be sure to place VAC drape over skin prior to securing black granufoam dressings cut in a linear fashion. Run wound VAC at 125 mmHg, high, continuous. Perform site care q. Thursday/Thursday/Thursday and as needed for wound VAC dressing dislodgment. 4. Left Buttock, Inferior to Site 1: Non-intact skin from VAC drape. Site has 100% red tissue. No odor, scant sanguineous drainage. Site measures 1.2 cm x 2.2 cm. Recommend: Cover site with nonadhesive foam dressing, cut to size. Cover site with VAC drape. Perform site care with VAC dressing changes. 5. Left lateral lower extremity distal aspect: Area of dark discoloration and red discoloration. Site measures 3.4 cm x 0.7 cm. Skin is intact. Recommend: Cover site with foam dressing for protection. Change dressing and assess site daily and as needed for dressing soiling or dislodgment. Also recommend: Reposition patient side to side only every 2 hours with one pillow underneath trunk and 1 pillow underneath pelvis bilaterally (initiate turning by using an additional pillow and placing under left side for 2 hours and rotating to right side every 2 hours, repeat every 2 hours). Off-load pressure areas with pillows for pressure re-distribution. Offload, elevate and float bilateral heels with one pillow lengthwise under each extremity at all times (ensure that heels do not touch bed). Perform skin care and monitor skin integrity Q shift. Use moisture barrier cream on buttocks and other moisture susceptible areas QID and as needed for soiling. Place patient on a P500 low air-loss mattress.
[2022-04-16 17:48] LABS: CALCIUM 10.4 mg/dL (8.4-11.0); CREATININE 0.7 mg/dL (0.55-1.30)
[2022-04-16 18:00] VITALS: BP_SYST 115
--- NOTE | 2022-04-16 19:30 | NUR ---
OPENING NOTE Pt lying in bed, eyes are open, minimal tracking. On 2L nasal cannula, tachypneic, saturating 97%. IV sites intact and patent with fluids running at ordered rate. Garnica catheter intact and draining by gravity. Wound vac to sacrum draining. Fall and safety precautions in place with bed in lowest position, bed alarm on, and call light within reach
[2022-04-16] MEDS: FLUCONAZOLE 200 mg/ NS 100 ML IV SCH (19:38)
[2022-04-16 20:00] VITALS: BP_SYST 118
[2022-04-16] MEDS: MELATONIN 5 MG TABLET PO SCH (20:12)
[2022-04-16] MEDS: ACYCLOVIR 400 MG TABLET PO SCH (20:12)
[2022-04-16] MEDS: ACETAMINOPHEN 650 MG SUPP.RECT RC PRN (21:57)
--- NOTE | 2022-04-16 22:30 | NUR ---
PAGEVentura BENAVIDES DR. PAGEVentura BENAVIDES DR.. AT THIS TIME, DUE TO PATIENT'S CONDITION WITH ELEVATED HR (AROUND 128), LOW BLOOD PRESSURE (SBP MID 90'S), INCREASED RESPIRATORY RATE (AROUND 25 RR), AND ELEVATED TEMPERATURE (106 DEGREES F CORE TEMPERATURE) DESPITE SUPPOSITORY TYLENOL ALREADY GIVEN.
--- NOTE | 2022-04-16 22:35 | NUR ---
FEVER Pt had temporal temp of 101.3. Administered RC Tylenol, after an hour temp 100.3. Applied cooling measures with rectal probe. Core Temp read 106 F. Ice packs also applied. Respirations 25, HR 130, O2 98% on 3L. BP 98/48. Paged Dr Fraire
--- NOTE | 2022-04-16 22:55 | NUR ---
PAGED DR. CHONG, A SECOND PAGE TO Corazon GUPTA AT THIS TIME, DUE TO PATIENT'S CONDITION WITH ELEVATED HR (AROUND 128), LOW BLOOD PRESSURE (SBP MID 90'S), INCREASED RESPIRATORY RATE (AROUND 25 RR), AND ELEVATED TEMPERATURE (106 DEGREES F CORE TEMPERATURE) DESPITE SUPPOSITORY TYLENOL ALREADY GIVEN.
--- NOTE | 2022-04-16 23:49 | NUR ---
PAGED DR. CHONG, A THIRD PAGE TO Corazon GUPTA AT THIS TIME, DUE TO PATIENT'S CONDITION WITH ELEVATED HR (AROUND 128), LOW BLOOD PRESSURE (SBP MID 90'S), INCREASED RESPIRATORY RATE (AROUND 25 RR), AND ELEVATED TEMPERATURE (106 DEGREES F CORE TEMPERATURE) DESPITE SUPPOSITORY TYLENOL ALREADY GIVEN.
[2022-04-17] VITALS (8 sets, daily range): BP systolic 74–104
--- NOTE | 2022-04-17 02:30 | NUR ---
SPOKE W/ DR CHONG Pt BP 82/41, 82/44, 79/39. Core temp decreased to 100 F on cooling measures. O2 98% on 3L nasal cannula. HR 100. Ordered stat chest xray. Upgraded from MS to tele
[2022-04-17] MEDS: VANCOMYCIN HCL 1,000 MG in NS 250 ML IV SCH ×2 (03:16→15:53)
--- NOTE | 2022-04-17 03:43 | NUR ---
Paged Dr. Rausch s/w [place]
--- NOTE | 2022-04-17 03:48 | NUR ---
LOW BP Pt's BP is now 72/36, 71/35. No call back from Dr Fraire to inform of CXR results. Paged Dr Rausch
--- NOTE | 2022-04-17 04:00 | NUR ---
SPOKE W/ DR DOAN Informed him of xray results and low BP. Ordered to increase fluids to 100ml/hr and to give albumin 25% 200ml @ 50ml/hr. Also stated that if BP does not respond to the albumin, then to transfer pt to the ICU. Charge nurse notified
[2022-04-17] MEDS: ALBUMIN HUMAN 25% 100 ML IV SCH ×2 (04:12→06:04)
[2022-04-17] MEDS: metroNIDAZOLE 500 mg/NS 100 ML IV SCH ×3 (05:56→22:49)
--- NOTE | 2022-04-17 06:35 | NUR ---
2nd dose of albumin running. BP slowly increasing 85/37. Core temp now normalized to 98.6. Cooling blanket still on. Pt still tachypneic w/ respirations at 25-30, but less use of accessory muscles. O2 100% on 3.5 L nasal cannula. HR 108. Pt is starting to respond to stimuli and mumble words, was able to squeeze RN's hand on command. Wound vac to sacral wound draining. Garnica catheter by gravity. All needs met throughout shift. Will endorse care to day shift RN
[2022-04-17 06:49] LABS: CALCIUM 9.2 mg/dL (8.4-11.0); CREATININE 1.08 mg/dL (0.55-1.30)
[2022-04-17] MEDS: IPRATROPIUM BROM 0.5 MG/2.5 ML VIAL.NEB (ATROVENT) INH SCH ×3 (07:29→16:07)
[2022-04-17 08:13] LABS: HEMATOCRIT 22.8 % (36-54); HEMOGLOBIN 7.3 g/dL (14.0-18.0); MEAN CORPUSCULAR HEMOGLOBIN 24 pg (27-31); MEAN CORPUSCULAR HGB CONC 32 % (32-36); MEAN CORPUSCULAR VOLUME 76 fL (79.0-98.0); PLATELET COUNT (AUTO) 77 K/uL (130-430); RED CELL DISTRIBUTION WIDTH 17.1 % (9.0-15.0)
[2022-04-17] MEDS: PANTOPRAZOLE SODIUM 40 MG TAB PO SCH (08:41)
[2022-04-17] MEDS: NEPHROVITE, (FOLIC ACID/VITAMIN B COMP W-C 1 TAB) PO SCH (08:41)
[2022-04-17] MEDS: DULoxetine HCL 30 MG CAPSULE.DR (CYMBALTA) PO SCH (08:41)
[2022-04-17] MEDS: CITALOPRAM HYDROBROMIDE 20 MG TABLET PO SCH (08:41)
[2022-04-17] MEDS: ACYCLOVIR 400 MG TABLET PO SCH ×2 (08:42→20:56)
--- NOTE | 2022-04-17 10:04 | NUR ---
Psychologist [employer] WARP COILER met with family who was requesting info for [employer]. WARP COILER will meet them in pts. room with resources. WARP COILER gathered resources including cremation and bereavement support services. and met with family in pt. room. WARP COILER told family based on pt.s insurance, he could go to a SNF with hospice care. Father stated they don't want to move pt. and was told by . pt. is going to pass away in the hospital. WARP COILER will remain available as needed.
[2022-04-17] MEDS: TIGECYCLINE 50 MG in NS 100 ML IV SCH ×2 (10:12→20:56)
[2022-04-17] MEDS: ENOXAPARIN SODIUM 40 MG/0.4 ML SYRINGE SUBCUT SCH (10:14)
[2022-04-17] MEDS: SODIUM BICARBONATE 8.4% JECT 150 MEQ in D5W 1,000 ML IVP SCH ×2 (10:15→22:38)
[2022-04-17 10:19] LABS: WHITE BLOOD COUNT (AUTO) 52.2 K/uL (4.8-10.8)
[2022-04-17 13:15] LABS: BAND % (MANUAL) 14 % (0-6); BASOPHILS % (MANUAL) 0 % (0-2); EOSINOPHILS % (MANUAL) 1 % (0-7); LYMPHOCYTES % (MANUAL) 13 % (20-46); METAMYELOCYTES % 7 % (0-0); MONOCYTES % (MANUAL) 3 % (0-11); MYELOCYTES % 8 % (0-0)
[2022-04-17 13:16] LABS: BLASTS, MANUAL % 8 % (0-0)
[2022-04-17] MEDS: FLUCONAZOLE 200 mg/ NS 100 ML IV SCH (15:52)
--- NOTE | 2022-04-17 16:00 | NUR ---
Nutrition F/U Short note 2/2 high pt load. Per EMR review, pt has been NPO x2 days and pending hospice eval. Full Nutrition F/U not indicated at this time. Pt will be downgraded to low nutritional risk priority, due within 7 days. Please send Nutrition Consult if nutrition interventions are warranted.
[2022-04-17 16:51] LABS: ALBUMIN 2.6 g/dL (3.4-4.8); CALCIUM 8.5 mg/dL (8.4-11.0); CREATININE 1.1 mg/dL (0.55-1.30); TOTAL BILIRUBIN 0.5 mg/dL (0.0-1.0)
[2022-04-17 17:50] LABS: INR 2.4 (0.80-1.20)
[2022-04-17] MEDS ORDERED: dilTIAZem HCL IVP 5 MG/ML VIAL IVP ONE (18:15)
--- NOTE | 2022-04-17 19:15 | NUR ---
OPENING NOTES Patient resting in bed. Patient resting in bed visible distress. Head of bed elevated NC3L. IV sites patent. Bed locked and in lowest position. Call light within reach bed alarm on.
--- NOTE | 2022-04-17 20:15 | NUR ---
midline inserted by midline nurse Addendum: 04/18/22 at 0428 by Jaylen Pederson RN Levy DELGADO
[2022-04-17] MEDS ORDERED: ALBUMIN HUMAN 5% 250 ML IV ONE ×2 (20:45)
--- NOTE | 2022-04-17 20:46 | NUR ---
Paged Dr. Bhardwaj patient tachycardic and low blood pressure patient blood pressure 74/41 start of shift notified dr. bhardwaj orders albumin 5% 250cc x 2 standing order to transfer to icu if systolic less than 80 and tachycardic
[2022-04-17] MEDS: MELATONIN 5 MG TABLET PO SCH (20:49)
[2022-04-17] MEDS ORDERED: ALBUMIN HUMAN 25% 100 ML IV ONE (21:15)
[2022-04-17] MEDS ORDERED: NACL 0.9% 1,000 ML IV ONE (21:15)
--- NOTE | 2022-04-17 21:25 | NUR ---
Paged Dr. Fraire again patient heart rate at 140s hospital has no 5% albumin orders transfer ICU 1L NS bolus albumin 25% 100cc 1 bottle
--- NOTE | 2022-04-17 23:15 | NUR ---
Received patient via bed from [facility] after episode of hypotension. SBP 84-87; will contact MD for orders for vasopressors.
--- NOTE | 2022-04-17 23:19 | NUR ---
patient transferred at this time to ICU
[2022-04-18] VITALS (21 sets, daily range): BP systolic 58–138
--- NOTE | 2022-04-18 | NUR ---
Transfer of care to Rusty DELGADO
--- NOTE | 2022-04-18 00:07 | NUR ---
Called patient sister Ella who is POA notified of ICU transfer status
[2022-04-18] MEDS ORDERED: NOREPINEPHRINE BITARTRATE 4 MG in NS 246 ML IV PRN (00:15)
[2022-04-18] MEDS ORDERED: NOREPINEPHRINE 4 MG/4 ML VIAL IV ONE ×2 (00:23→06:35)
[2022-04-18] MEDS: IPRATROPIUM BROM 0.5 MG/2.5 ML VIAL.NEB (ATROVENT) INH SCH ×2 (01:01→07:15)
[2022-04-18] MEDS: levalbuterol HCL 0.63 MG/3 ML VIAL.NEB INH SCH ×2 (01:02→07:15)
--- NOTE | 2022-04-18 01:15 | NUR ---
Received call from Ella (patient's sister) reported patient was started on Levophed and blood pressure on acceptable level at this point. Ella stated will visit patient in am.
--- NOTE | 2022-04-18 01:20 | NUR ---
Order received from Dr Jayce Pittman covering for Dr Fraire to start Levophed as per protocol.
[2022-04-18] MEDS: VANCOMYCIN HCL 1,000 MG in NS 250 ML IV SCH (03:14)
[2022-04-18] MEDS: metroNIDAZOLE 500 mg/NS 100 ML IV SCH (06:30)
[2022-04-18 06:36] LABS: CALCIUM 8.2 mg/dL (8.4-11.0); CREATININE 1.22 mg/dL (0.55-1.30)
--- NOTE | 2022-04-18 07:30 | NUR ---
RECEIVED PATIENT FROM NIGHT RN GIANFRANCO. PT. ON 100% NRM, MOANING AND GROANING ON TURNING, HARD TO DISCERN FEW SPOKEN WORDS. LEVOPHED GTT AT 0.13 MCG/KG/MINUTE, BICARBONATE GTT IN D5% WATER AT 75 MLS/HR. NPO, NO NGT. WOUND VAC DRAIN ON SACRUM, SEROSAGUINOUS HALFUL DRAINAGE. MODIFIED CODE, NO INTUBATION, NO COMPRESSION, OK WITH BiPAP, OK WITH ACLS DRUGS. TAO CATHETER. ON COOLING BLANKET. TEMP. 102.1F RECTAL.
[2022-04-18 07:51] LABS: MEAN CORPUSCULAR HEMOGLOBIN 25 pg (27-31); MEAN CORPUSCULAR HGB CONC 33 % (32-36); MEAN CORPUSCULAR VOLUME 74 fL (79.0-98.0); PLATELET COUNT (AUTO) 69 K/uL (130-430); RED BLOOD CELL COUNT(AUTO) 2.76 MIL/uL (4.2-6.2); RED CELL DISTRIBUTION WIDTH 17.3 % (9.0-15.0); WHITE BLOOD COUNT (AUTO) 28.6 K/uL (4.8-10.8)
[2022-04-18 08:44] LABS: HEMOGLOBIN 6.8 g/dL (14.0-18.0)
[2022-04-18 08:45] LABS: HEMATOCRIT 20.5 % (36-54)
--- NOTE | 2022-04-18 08:48 | NUR ---
BALDO GAN CALLED UP AND NOTED THAT THE FAMILY, DAD (KALEIGH GERARD) AND SISTER (POWER OF MUSSEL FARMER) REDDY CHAMORRO WOULD LIKE COMFORT CARE AND HE SAID HE IS COMING TO SEE THE PATIENT AND FAMILY (SISTER REDDY & PATIENT'S MOM AT THE BEDSIDE). DAD SAID ON THE PHONE WITH RN (), HE IS OKAY TO KEEP PATIENT ON NASAL CANNULA O2, STOP NRM, NO BiPAP, STOP LEVOPHED GTT, D5% WATER SODIUM BICARBONATE FLUID GTT, ALL MEDS, NO TUBE FEEDING, NOTED NPO RIGHT NOW AND ACTUALLY DOES NOT WANT THE LEVOPHED GTT STARTED. JUST KEEP ON NASAL CANNULA, MORPHINE GTT, AND IV MED. FOR AGITATION. SISTER REDDY IS AWARE THAT THE PT. IS VERY SICK, HIGH FEVER, TACHYCARDIC, HYPOXIC AT 86-90% ON 100% NRM, HIV POSITIVE, BIG WOUNDS ON WOUND VAC. DR. NAJERA CAME AND TALKED TO SISTER REDDY CHAMORRO AT THE BEDSIDE AND CONFIRMED THAT THE PT. WILL BE ON COMFORT MEASURES ABOVE. DR. NAJERA WAS INFORMED THAT THE H/H 6.8/20.5, SERUM GLUCOSE 53, SpO2 86%, TACHYCARDIC, FEBRILE. Addendum: 04/18/22 at 1359 by [employer] DANNY Otero RN PATIENT'S DAD, MR. KALEIGH GERARD WHO LIVES IN [place], [address] AWAY WITH PHONE NUMBER [phone], CANNOT COME IN THE HOSPITAL PER DAUGHTER REDDY.
[2022-04-18] MEDS ORDERED: PHYTONADIONE 10 MG in NS 50 ML IV ONE (09:00)
--- NOTE | 2022-04-18 09:30 | NUR ---
DR. DAUGHERTY (ONCOLOGIST) CAME AND NOTED THAT THE PT. ON LEVOPHED AND FAMILY WITH POWER OF SAP PORTAL CONSULTANT SISTER REDDY CHAMORRO WANTS THE PATIENT TO BE ON COMFORT MEASURES. HE ORDERED TO DISCONTINUE BLOOD TRANSFUSION, H/ 6.8/20.5 HE ORDERED EARLIER.
--- NOTE | 2022-04-18 10:30 | NUR ---
PEPE CHRIS CAME AND NOTED THAT PATIENT IS ON LEVOPHED GTT AND ON 100% NRM, AND THAT FAMILY WITH POWER OF BLISTER PACK OPERATOR REDDY CHAMORRO DECIDED FOR A COMFORT CARE, STOP ALL MEDICATIONS AND DRIPS, START ON MORPHINE GTT, OXYGEN NASAL CANNULA. SAID IT OKAY WITH HIM TO DO COMFORT MEASURES.
--- NOTE | 2022-04-18 11:05 | NUR ---
PAGED BALDO GAN FOR ORDER OF COMFORT MEASURES AND THE FULL DO NOT RESUSCITATE ORDER SHEET TO SIGN. ORDERED FAMILY EXPRESSED, POA, FOR STOP ALL MEDICATIONS, START ON MORPHINE GTT, OXYGEN NASAL CANNULA 2LPM, ATIVAN 1 MG IV Q2HRS. PRN AGITATION.
[2022-04-18] MEDS ORDERED: NALOXONE HCL 0.4 MG/ML AMP (NARCAN) IVP PRN (11:15)
[2022-04-18] MEDS ORDERED: MORPHINE SULFATE IN 0.9 % NACL 100 ML IV PRN (11:15)
[2022-04-18] MEDS ORDERED: LORazepam 2 MG/ML VIAL IVP PRN (11:15)
--- NOTE | 2022-04-18 11:15 | NUR ---
HIGH ALERT NOTE: MORPHINE DRIP AND ATIVAN PRN Called Dr. NAJERA back at PHONE NUMBER identified within the medical roster to verify physician authenticity. PT PLACED ON PALLIATIVE CARE. MORPHINE DRIP ORDERED AND PRN ATIVAN. ALL OTHER MEDICATIONS DISCONTINUED.
[2022-04-18] MEDS ORDERED: FLUCONAZOLE 200 mg/ NS 100 ML IV SCH (12:00)
--- NOTE | 2022-04-18 14:55 | NUR ---
rt notes 1455 pt on comfort care, pt on 3LNC saturating 78%, HR 108. family at bedside.
[2022-04-18 16:31] LABS: BAND % (MANUAL) 15 % (0-6); BASOPHILS % (MANUAL) 0 % (0-2); BLASTS, MANUAL % 4 % (0-0); EOSINOPHILS % (MANUAL) 2 % (0-7); LYMPHOCYTES % (MANUAL) 17 % (20-46); METAMYELOCYTES % 8 % (0-0); MONOCYTES % (MANUAL) 5 % (0-11); MYELOCYTES % 4 % (0-0)
--- NOTE | 2022-04-18 19:30 | NUR ---
rEPORT RECEIVED FROM DAY RN. ASSUMING CARE NOW. ORDERS CHECKED AND PATIENT IS DNR WITH COMFORT CARE ORDERS AND MORPHINE DRIP CURRENTLY INFUSING. FAMILY AT BEDSIDE. SIGNS AND SYMPTOMS OF DISTRESS/DISCOMFORT REVIEWED WITH FAMILY. PATIENT DOES NOT APPEAR TO BE IN ANY DISTRESS WITH MOROPHINE GTT INFUSING AT 3MG/HR.
--- NOTE | 2022-04-18 19:30 | NUR ---
REPORT GIVEN TO NIGHT DANNY VILLALBA. PT. ON MORPHINE GTT AT 3 MG/HR. PT. LOOKS COMFORTABLE & SISTER REDDY CHAMORRO (POA) DOES NOT WANT TO INCREASE ANYMORE. OXYGEN STILL AT 3 LPM/NC. NO OTHER DRIPS. COMFORT CARE. CLEANED PT. WITH STOOL. WOUND VAC AT LEVEL OF 300 MLS. OUTPUT IS 50 MLS. FOR THE AM SHIFT. ANURIC. PUPILS ARE SLIGHTLY UNEQUAL AT 4 AND 4.5 MM (LEFT SIDE) SLUGGISH. DUSKY FINGERS. UNABLE TO QUOTATION CHECKER SpO2. SISTER REDDY AT THE BEDSIDE WITH HER SON, AND HER WILL BE COMING TONIGHT.
[2022-04-19] VITALS: BP_SYST 55
[2022-04-19 02:00] VITALS: BP_SYST 50
--- NOTE | 2022-04-19 02:17 | NUR ---
PATIENT SHOWS ASYSTOLIC ON MONITOR. NO PULSE ABLE TO BE PALPATED. NO CHEST RISE/FALL NOTED AND BREATH/HEART SOUNDS COULD NOT BE AUSCULTATED. RN GIANFRANCO SECOND RN TO ASSESS AND CONFIRM.
--- NOTE | 2022-04-19 02:56 | NUR ---
NOTIFICATION OF EXPIRATION 0254 - DR. Ventura GARCIAS OC FOR DR. ABUNDIO CHONG, SPOKE WITH LUISA AT THE EXCHANGE 0251 - DR. JONES, SPOKE WITH REINA AT THE EXCHANGE 0256 - SPOKE WITH DR. GIBBS 025 - DR. SANDERS, SPOKE WITH REINA AT THE EXCHANGE 0251 - DR. WATSON (DR. GRIMM OC), SPOKE WITH REINA AT THE EXCHANGE
--- NOTE | 2022-04-19 04:52 | NUR ---
[facility] REPS HERE TO FASHION ADVISER BODY.
[2022-04-19 12:06] LABS: PTH RELATED PEPTIDE <2.0 pmol/L (.)
== END 2022-04-19 02:17 | DRG 969 ==
LOC: SED 13:29 → SMU 19:40 → STU 04-17 02:29 → SIC 04-17 23:11
PROVIDERS: ADMIT Internal Medicine; ATTEND Internal Medicine
PROC: 05HY33Z Insertion of Infusion Device into Upper Vein, Percutaneous Approach (ICD-10-PCS; 2022-03-18)
PROC: B54NZZA Ultrasonography of Left Upper Extremity Veins, Guidance (ICD-10-PCS; 2022-03-18)
PROC: 0KBN0ZZ Excision of Right Hip Muscle, Open Approach (ICD-10-PCS; 2022-04-11)
PROC: 0KBP0ZZ Excision of Left Hip Muscle, Open Approach (ICD-10-PCS; principal; 2022-04-11 18:56)
DX: A41.9 Sepsis, unspecified organism (principal); G82.50 Quadriplegia, unspecified; B20 Human immunodeficiency virus [HIV] disease; C83.70 Burkitt lymphoma, unspecified site; N39.0 Urinary tract infection, site not specified; M86.8X8 Other osteomyelitis, other site; Z16.24 Resistance to multiple antibiotics; E87.20 Acidosis, unspecified; I96 Gangrene, not elsewhere classified; N40.0 Benign prostatic hyperplasia without lower urinary tract symptoms; E83.39 Other disorders of phosphorus metabolism; D64.9 Anemia, unspecified; K62.89 Other specified diseases of anus and rectum; L89.150 Pressure ulcer of sacral region, unstageable; R53.81 Other malaise; E83.52 Hypercalcemia; Z66 Do not resuscitate; R65.20 Severe sepsis without septic shock; Z20.822 Contact with and (suspected) exposure to COVID-19; L89.329 Pressure ulcer of left buttock, unspecified stage; L89.319 Pressure ulcer of right buttock, unspecified stage; B96.89 Other specified bacterial agents as the cause of diseases classified elsewhere; E87.6 Hypokalemia; N18.9 Chronic kidney disease, unspecified; Z79.891 Long term (current) use of opiate analgesic; Z79.899 Other long term (current) drug therapy; Z92.21 Personal history of antineoplastic chemotherapy; Z74.01 Bed confinement status
CPT/HCPCS: 36415; 36600; 71045; 71250-TC; 76376; 80048; 80053; 80202; 81000; 82306; 82803-TC; 82947; 83519; 83605; 83735; 83970; 84100; 84311; 84484; 85007; 85025; 85027; 85610-TC; 85730-TC; 86665; 86886; 86900; 86901; 87040; 87070-TC; 87075-TC; 87086; 93005; 93970; 94640; 94664; 94760; 99291; C1751; J0692; J1030; J1450; J1650; J2250; J2270; J2430; J2543; J2704; J3243; J3370; J3430; J3475; J3480; J3490; J7030; J7040; J7042; J7050; J7060; J7614; Q9967